=== PATIENT | female | born 1950 | race Caucasian/White ===

== ENCOUNTER 2021-07-11 16:19 | Emergency (ER) | payer MEDICARE, SELFPAY ==
--- NOTE | ~2021-07-11 | XR_ITS ---
EXAMINATION: XR shoulder LT min 2V INDICATION: Left shoulder pain TECHNIQUE: Four views of the left shoulder are submitted. COMPARISON: None FINDINGS: There appears to be chronic deformity of the left humeral head, likely reflecting prior fra cture. No acute fracture is identified. 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 There appears to be an old healed clavicle fracture. There is a large hiatal he rnia. IMPRESSION: 1. Findings consistent with old left proximal humerus and left clavicle fracture without acute osseou s abnormality identified. Reviewed, dictated and finalized at location F. [employer]ING [employer] IMPRESSION: 1. Findings consistent with old left proximal humerus and left clavicle fractur e without acute osseous abnormality identified.
[2021-07-11 17:08] VITALS: BP 135/67; PULSE 78; RESP 20; TEMP 36.4; O2SAT 97
--- NOTE | 2021-07-11 19:15 | ED.UPPEXIN ---
HPI - Extremity Injury (Upper) General Chief Complaint: Extremity Injury, Upper Stated Complaint: Fall Injury/Left shoulder Pain Time Seen by Provider: 07/11/21 19:16 Source: patient, RN notes reviewed and old records reviewed Mode of arrival: ambulatory Limitations: no limitations History of Present Illness HPI narrative: 71 year old female accompanied by spouse with complaints of injury to her left shoulder today when she tripped over vacuum clearer at home onto her left shoulder. Patient reports that she had previous surgery to her left shoulder many years ago by Dr White. Patient reports acute pain to the left shoulder anterior and posterior region with abrasion also noted to left elbow with no acute discomfort to elbow noted. Patient has strong left radial and brachial pain increased pain with movement of her left shoulder. Patient has had COVID and Flu vaccination. Patient has prior RX for hydrocodone and has taken a dose of this medication for her shoulder pain. MD complaint: injury to: left and shoulder Other Extremity Injury: Left: shoulder Handedness: right Place: home Related Data Home Medications Medication Instructions Recorded Confirmed amitriptyline 100 mg PO DAILY 07/11/21 07/11/21 aripiprazole 5 mg PO DAILY 07/11/21 07/11/21 atorvastatin 20 mg PO DAILY 07/11/21 07/11/21 carvedilol 6.25 mg PO BID 07/11/21 07/11/21 donepezil 10 mg PO DAILY 07/11/21 07/11/21 ergocalciferol (vitamin D2) 1,250 mcg PO WEEKLY 07/11/21 07/11/21 hydrocodone-acetaminophen 1 tablet PO BID 07/11/21 07/11/21 losartan 50 mg PO DAILY 07/11/21 07/11/21 sertraline 100 mg PO BID 07/11/21 07/11/21 venlafaxine 75 mg PO DAILY 07/11/21 07/11/21 venlafaxine 150 mg PO DAILY 07/11/21 07/11/21 Allergies Allergy/AdvReac Type Severity Reaction Status Date / Time No Known Allergies Allergy Verified 07/11/21 18:18 Review of Systems Review of Systems: CONSTITUTIONAL: Denies fever, chills, or sweats. EYES: Denies visual changes, redness, or discharge. ENT: Denies rhinorrhea, congestion, sore throat, or otalgia. CARDIOVASCULAR: Denies chest pain, palpitations, or edema. RESPIRATORY: Denies cough or dyspnea. GASTROINTESTINAL: Denies abdominal pain, nausea, vomiting, or diarrhea. GENITOURINARY: Denies dysuria or hematuria. SKIN: Denies rash or itching.abrasion to left elbow area no drainage noted. MUSCULOSKELETAL: Denies back pain,positive for ,acute left shoulder joint pain, or myalgia. NEUROLOGIC: Denies headache, numbness, or weakness. PSYCHIATRIC: Positive for anxiety or depression. All systems reviewed & are unremarkable except as noted in HPI and below PMFSH Past Medical History Medical History (Updated 07/13/21 @ 20:11 by Maria Esther Gonzáles NP) Anxiety and depression Elevated cholesterol Fibromyalgia Hypertension Surgical History Surgical History (Updated 07/13/21 @ 20:10 by Maria Esther Gonzáles NP) H/O repair of rotator cuff left H/O: hysterectomy Social History Social History (Updated 07/13/21 @ 20:12 by Maria Esther Gonzáles NP) Smoking status: Never smoker Alcohol intake: never Substance use: current Substance use type: opiates Last use: pain control Living arrangements: with family Gender identity (if verbalized by the patient): Female Comments At time of signature, agree with nursing past medical, surgical, social and family history. There is no relevant family history pertinent to the presenting complaint Exam Narrative: GENERAL: Well-appearing, well-nourished, and in some acute distress due to discomfort HEAD: Normocephalic, atraumatic. EYES: PERRLA and EOMI. ENT: Nares clear, no rhinorrhea or epistaxis. Mucous membranes moist. TM's normal with good light reflex, throat pink with no lesions, exudates or tonsil enlargement. NECK: Supple.no lymphadenopathy CHEST: Clear to auscultation. No respiratory distress.SAO2 97% on room air HEART: Regular rate and rhythm. No murmur heard. Normal peripheral pulses. ABDO
== END 2021-07-11 19:30 | disposition home or self-care (01) ==
PROVIDERS: Emergency Provider Registered Nurse; PCP Internal Medicine
DX: S40.012A Contusion of left shoulder, initial encounter (principal); W18.09XA Striking against other object with subsequent fall, initial encounter; E78.00 Pure hypercholesterolemia, unspecified; M79.7 Fibromyalgia; I10 Essential (primary) hypertension; F41.9 Anxiety disorder, unspecified; F32.9 Major depressive disorder, single episode, unspecified
CPT/HCPCS: 73030; 99213; A4565; G0463